=== PATIENT | male | born 1945 | race Caucasian/White ===

== ENCOUNTER → 2022-04-12 | Outpatient (CLI) | payer MEDICARE, BC ==
--- NOTE | 2022-04-12 15:56 | CT ---
EXAMINATION TYPE: CT chest wo con DATE OF EXAM: 04/12/2022 COMPARISON: None HISTORY: 76 year-old male C34.90, Non small cell lung cancer TECHNIQUE: Contiguous axial scanning of the chest without IV contrast. Coronal and sagittal reconstru ctions performed. CT DLP: 692.8 mGycm Automated exposure control for dose reduction was used. FINDINGS: Heart normal size with trace pericardial fluid anteriorly. Extensive LAD less than degree of RCA in c ircumflex coronary artery calcifications are present. Mild atherosclerotic arch calcifications with conventional arch vessel branching anatomy. Prominent but nonenlarged 7 mm lower right paratracheal lymph node. 8 mm subcarinal lymph node. 6 mm lower left paraesophageal lymph node. No thoracic lymphadenopathy by CT size criteria. Mild bilateral gynecomastia. Surgical clips of the right hilum. There is evidence of prior right upper lobectomy and associated ri ght upper thoracic volume loss. Mild centrilobular emphysema. Strandy scarring or atelectasis at the lung bases. 6 mm peripheral left basilar pulmonary nodule, axial image 43. 4 mm left basilar pulmonary nodule, axial image 44. Small hiatal hernia. There is mildly diminished attenuation of the liver parenchyma suggesting mild fatty infiltration. Th ere is central liat mesentery with associated lymph nodes measuring up to 7 mm partially visualized. Bones: Moderate to advanced degenerative disc disease mid to lower thoracic spine. IMPRESSION: 1. COPD WITH MILD EMPHYSEMA. PATIENT IS STATUS POST RIGHT UPPER LOBECTOMY. 2. A COUPLE PULMONARY NODULES IN THE LEFT LOWER LOBE MEASURING 6 MM AND 4 MM. RECOMMEND 3-6 MONTH FOL LOW-UP CT TO REASSESS. 3. PARTIALLY VISUALIZED CENTRAL LIAT MESENTERY IN THE UPPER ABDOMEN WITH ASSOCIATED BORDERLINE SIZED LYMPH NODES. CORRELATE WITH PATIENT'S SYMPTOMS FOR POSSIBLE MESENTERIC PANNICULITIS. THIS SHOULD ALS O BE REASSESSED AT THE 3-6 MONTH FOLLOW-UP EARLY LYMPHOMA CAN HAVE A SIMILAR APPEARANCE. 4. CAD WITH 3 VESSEL CORONARY ARTERY CALCIFICATIONS.
== END | disposition home or self-care (01) ==
LOC: RADCTMAIN 13:52
PROVIDERS: ATTEND Internal Medicine Critical Care Medicine
DX: C34.90 Malignant neoplasm of unspecified part of unspecified bronchus or lung (principal); R91.8 Other nonspecific abnormal finding of lung field; I25.10 Atherosclerotic heart disease of native coronary artery without angina pectoris; J43.9 Emphysema, unspecified
CPT/HCPCS: 71250

== ENCOUNTER → 2022-10-09 | Outpatient (CLI) | payer MEDICARE, BC ==
[2022-10-09 11:44] LABS: African American GFR (CKD) >90 (>60 ml/min/1.73 sqM); Blood Urea Nitrogen 17 mg/dL (9-20); Non-African American GFR(CKD) >90 (>60 ml/min/1.73 sqM)
--- NOTE | 2022-10-09 15:37 | CT ---
EXAMINATION TYPE: CT chest w con DATE OF EXAM: 10/09/2022 COMPARISON: HISTORY: LUNG CA CT DLP: 775 mGycm Automated exposure control for dose reduction was used. TECHNIQUE: CT scan of the chest is performed with IV Contrast, patient injected with 70 mL of Isovue 300. MIP I mages are created on CT scanner and reviewed. 3D reconstructed images are created on an independent w orkstation and reviewed. FINDINGS: Heart normal size with trace pericardial fluid anteriorly. Extensive LAD less than degree of RCA in c ircumflex coronary artery calcifications are present. Mild atherosclerotic arch calcifications with conventional arch vessel branching anatomy. Prominent but nonenlarged 7 mm lower right paratracheal lymph node. 8 mm subcarinal lymph node. 6 mm lower left paraesophageal lymph node. No thoracic lymphadenopathy by CT size criteria. Mild bilateral gynecomastia. Surgical clips of the right hilum. There is evidence of prior right upper lobectomy and associated ri ght upper thoracic volume loss. Mild centrilobular emphysema. Strandy scarring or atelectasis at the lung bases. 6 mm peripheral left basilar pulmonary nodule, stable. 4 mm left basilar pulmonary nodule, stable. 1 mm nodule retrospectively stable. Within the superior segment of the left upper lobe there is a retrospectively stable 2 mm subpleural nodule. Small hiatal hernia. There is mildly diminished attenuation of the liver parenchyma suggesting mild fatty infiltration. Th ere is central liat mesentery with associated lymph nodes measuring up to 7 mm partially visualized. Bones: Moderate to advanced degenerative disc disease mid to lower thoracic spine. IMPRESSION: 1. Diffuse emphysematous changes with the findings suggestive of previous right upper lobe lobectomy. 2. A previous study noted subcentimeter nodules are stable and most likely benign. 3. There remains haziness to the mesentery in the upper abdomen borderline sized lymph nodes. This ca n be seen seen with a mesenteric panniculitis although other more aggressive etiologies including lym phoma within the differential diagnosis. Correlate clinically. 4. Dense coronary artery atherosclerotic changes.
== END | disposition home or self-care (01) ==
LOC: RADCTMAIN 11:12
PROVIDERS: ATTEND Internal Medicine Critical Care Medicine
DX: C34.90 Malignant neoplasm of unspecified part of unspecified bronchus or lung (principal); K65.4 Sclerosing mesenteritis; J43.9 Emphysema, unspecified; R91.8 Other nonspecific abnormal finding of lung field; I25.10 Atherosclerotic heart disease of native coronary artery without angina pectoris
CPT/HCPCS: 82565; 84520; 71260; 36415; Q9967

== ENCOUNTER → 2023-03-18 | Outpatient (CLI) | payer MEDICARE, BC ==
--- NOTE | 2023-03-18 14:50 | CT ---
EXAMINATION TYPE: CT chest wo con CT DLP: 542.3 mGycm, Automated exposure control for dose reduction was used. DATE OF EXAM: 03/18/2023 1:22 PM COMPARISON: Multiple CTs 10/09/[phone]. CLINICAL INDICATION:Male, 77 years old with history of C34.90, f/u lung ca TECHNIQUE: Multiple axial images were obtained through the chest. Sagittal and coronal reformats were created for review. Contrast used: none. Oral contrast used: none. FINDINGS: LUNGS/ PLEURA: Status post right upper lobectomy. Mild emphysema changes within the lungs. No focal c onsolidation, pneumothorax or pleural effusion. Stable left lower lobe pulmonary nodule measuring 6 m m back to 04/13/2022. AIRWAY: Patent and unremarkable. HEART: Size within normal limits. Severe coronary artery atherosclerosis MEDIASTINUM: No gross evidence of adenopathy. VASCULATURE: Atherosclerotic calcifications are present throughout the aorta and its branches. MUSCULOSKELETAL: Moderate disc degeneration changes are present throughout the thoracolumbar spine. SOFT TISSUES/LYMPH NODES: Unremarkable. LOWER NECK: No significant findings. UPPER ABDOMEN: Diffuse low-attenuation to the liver parenchyma. Eunice mesentery seen in the upper abd omen unchanged from priors. Small hiatal hernia is present. IMPRESSION: 1. Postsurgical change without evidence for recurrence. No evidence for lymphadenopathy. 2. Severe coronary artery atherosclerosis. 3. Mild emphysema changes. 4. Hepatic steatosis 5. Small hiatal hernia
== END | disposition home or self-care (01) ==
LOC: RADCTMAIN 13:03
PROVIDERS: ATTEND Internal Medicine Critical Care Medicine
DX: C34.90 Malignant neoplasm of unspecified part of unspecified bronchus or lung (principal); I25.10 Atherosclerotic heart disease of native coronary artery without angina pectoris; J43.9 Emphysema, unspecified; K76.0 Fatty (change of) liver, not elsewhere classified; K44.9 Diaphragmatic hernia without obstruction or gangrene
CPT/HCPCS: 71250